=== PATIENT | male | born 1995 | race Caucasian/White ===

== ENCOUNTER 2021-04-04 16:08 | Emergency (ER) | payer SELFPAY ==
[2021-04-04 16:21] VITALS: BP 125/85; PULSE 76; RESP 14; TEMP 36.7; O2SAT 97
--- NOTE | 2021-04-04 16:47 | W.ED.GENAD ---
Discharge Plan Disposition Patient Disposition: HOME Condition: Stable Discharge Details Clinical Impression: Retained foreign body of lower extremity Primary Care Provider: Unknown,Unknown ED Provider: Brittany Blanco Home Meds and New Rx's Prescriptions: New cephalexin 500 mg tablet 500 mg PO BID 7 Days Qty: 14 RF: 0 No Action sertraline 100 mg tablet 100 mg PO DAILY RF: 0 hydroxyzine HCl 25 mg tablet 25 mg PO QHS RF: 0 Discharge Instructions Instructions: Puncture Wound (ED) Additional Instructions: No foreign body was visualized on the ultrasound done today. There are some possible things you may try including baking soda paste, apply to the opening and put a Band-Aid over this may help to dry out the splinter. Also hydrogen peroxide or honey. Please take the antibiotics if you notice increased redness, swelling, drainage or signs of infection. The prescription was sent to the pharmacy on file. Warm soaks, you may apply antibiotic ointment once daily as needed. Allowed to air dry. Follow up with primary care provider in 3-5 days. Return to ED sooner if any worsening or concerns. Increase oral fluids. Please take Tylenol or Ibuprofen with food every 4-6 hours as needed for pain and swelling. Medical Decision Making 25-year-old male presents to the ER with possible retained wooden foreign body to his left thigh. Patient reports 5 days ago he brushed up against a wooden table was seen on the at [facility] where there was an attempt to remove the foreign body which was unsuccessful. Patient presents today concerned that there is a retained foreign body. No signs of infection including induration or surrounding erythema. He does have some contusions noted around an entry puncture wound. Bedside ultrasound used to visualize possible foreign body. Dr. Angeline VILLAGOMEZ was requested to take a look as well. No foreign body visualized via ultrasound. Discussed home care. Will place patient on cephalexin to treat empirically for possible retained foreign body. Instructed on home care and strict return instructions, verbalized understanding. This text was generated using [employer]way[employer] system, please disregard any oddities of phrase or misspellings. HPI General Mode of arrival: ambulatory. Date/Time Provider Initiated Documentation: 04/04/21 16:24. Limitations to Documentation: no limitations. Information obtained by: patient. HPI Narrative: 25-year-old male presents to the ER with possible retained wooden foreign body to his left thigh. Patient reports 5 days ago he brushed up against a wooden table was seen on the at [facility] where there was an attempt to remove the foreign body which was unsuccessful. Patient presents today concerned that there is a retained foreign body. No signs of infection including induration or surrounding erythema. He does have some contusions noted around an entry puncture wound. Related Data Home Medications Medication Instructions Recorded Confirmed hydroxyzine HCl 25 mg tablet 25 mg PO QHS 04/02/21 04/04/21 sertraline 100 mg tablet 100 mg PO DAILY 04/02/21 04/04/21 cephalexin 500 mg PO BID 7 Days #14 tab 04/04/21 Previous Rx's Medication Instructions Recorded cephalexin 500 mg PO BID 7 Days #14 tab 04/04/21 Allergies Allergy/AdvReac Type Severity Reaction Status Date / Time No Known Allergies Allergy Verified 04/04/21 16:24 General Stated Complaint: [facility] NORMAN: 4 Review of Systems All systems reviewed & are unremarkable except as noted in HPI and below PFSH All Active Problems (Updated 04/04/21 @ 16:52 by Brittany Blanco) Retained foreign body of lower extremity (Acute) Social History Smoking/Tobacco Use Status: Current every day Tobacco Type: e-cigarettes Smoking risk assessment performed?: Yes Alcohol Intake: current Alcohol Intake frequency: holidays/special occasions only Drug use: Never Substance use type: does not use Do you feel safe at home: Yes Exam Extrem Left lower extremity: hip/thigh Details: ecchymosis and penetrating wound proximal upper leg lateral Details: single Upper/lower leg/hip images: 1. Punture wound with surrounding ecchymosis and contusion Course Vital Signs Vital signs: Vital Signs Temperature 36.7 C 04/04/21 16:21 Pulse 76 04/04/21 16:21 Respiratory Rate 14 04/04/21 16:21 Blood Pressure 125/85 04/04/21 16:21 Pulse Oximetry 97 04/04/21 16:21 Temperature 36.7 C 04/04/21 16:21 Temperature Source Oral 04/04/21 16:21 Pulse 76 04/04/21 16:21 Respiratory Rate 14 04/04/21 16:21 Respiratory Effort Non-Labored 04/04/21 16:25 Respiratory Depth Normal 04/04/21 16:25 Respiratory Pattern Normal 04/04/21 16:25 Blood Pressure 125/85 04/04/21 16:21 Blood Pressure Position Sitting 04/04/21 16:21 Pulse Oximetry 97 04/04/21 16:21 Oxygen Delivery Method Room Air 04/04/21 16:21 Oxygen Flow Rate 0 04/04/21 16:21 Pain Level 0 04/04/21 16:21
== END 2021-04-04 16:56 | disposition home or self-care (01) ==
PROVIDERS: Emergency Provider Registered Nurse Emergency
DX: S70.352A Superficial foreign body, left thigh, initial encounter (principal); W45.8XXA Other foreign body or object entering through skin, initial encounter
CPT/HCPCS: 99283